=== PATIENT | female | born 2000 | race Caucasian/White ===

== ENCOUNTER 2021-10-05 17:09 | Emergency (ER) | payer MEDICAID, OTHER ==
[2021-10-05] MEDS ORDERED: Lidocaine 1% (PF) 30 ML VIAL ONE (19:36)
[2021-10-05] MEDS ORDERED: Boostrix 0.5 ML (Tdap) VIAL ONE (19:55)
== END 2021-10-05 20:10 | disposition home or self-care (01) ==
LOC: MADERS 17:09
DX: S61.216A Laceration without foreign body of right little finger without damage to nail, initial encounter (principal); Z23 Encounter for immunization; W26.8XXA Contact with other sharp object(s), not elsewhere classified, initial encounter; Y99.0 Civilian activity done for income or pay
CPT/HCPCS: 90471; 90715; 99282; J2001